=== PATIENT | female | born 1955 | race Caucasian/White ===

== ENCOUNTER 2017-03-01 08:49 | Emergency (ER) | payer SELFPAY ==
[~2017-03-01] VITALS: Ht 170.2 cm; Wt 87.0 kg
[~2017-03-01 08:49] MED LIST: CYCL-36 PO; PRED20 PO; ZITH250T PO
[2017-03-01 08:53] VITALS: BP 175/109; PULSE 98; RESP 16; TEMP 97.8; O2SAT 97
[2017-03-01] MEDS ORDERED: AMOX500C PO (09:16)
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
== END 2017-03-01 09:32 | disposition home or self-care (01) ==
LOC: PHED 08:49
DX: J02.9 Acute pharyngitis, unspecified (principal); F17.210 Nicotine dependence, cigarettes, uncomplicated
CPT/HCPCS: 99283